=== PATIENT | female | born 1990 | race Caucasian/White ===

== ENCOUNTER → 2017-07-26 | Outpatient (CLI) | payer MEDICAID, SELFPAY | PROVIDERS: Visit Provider Psychiatry & Neurology Psychiatry | DX: F84.0 Autistic disorder (principal); R73.9 Hyperglycemia, unspecified | CPT/HCPCS: 36415; 80053; 80061; 83036; 85025 ==

== ENCOUNTER → 2018-10-22 11:33 | Outpatient (CLI) | payer MEDICAID, SELFPAY ==
[2018-10-22 13:56] LABS: Hemoglobin A1C 5.8 % (0.0-7.0)
[2018-10-22 14:09] LABS: C-Reactive Protein 1.1 mg/L (0.0-0.9); Creatine Kinase 185 U/L (26-192); Free T4 (Free Thyroxine) 1.01 ng/dl (0.76-1.46)
[2018-10-23 13:26] LABS: Vitamin B12 497 pg/mL (232-1245)
[2018-10-25 14:40] LABS: Methylmalonic Acid 166 nmol/L (0-378)
== END ==
PROVIDERS: Visit Provider Psychiatry & Neurology Neurology
DX: K59.00 Constipation, unspecified (principal); R74.8 Abnormal levels of other serum enzymes; R26.9 Unspecified abnormalities of gait and mobility
CPT/HCPCS: 36415; 82131; 82550; 82607; 83036; 84439; 84443; 86140

== ENCOUNTER → 2019-04-14 08:56 | Outpatient (CLI) | payer MEDICAID, SELFPAY ==
[2019-04-14 13:38] LABS: Basophils # 0.1 K/mm3 (0-0.2); Basophils % 0.5 % (0.1-2.0); Eosinophils # 0.2 K/mm3 (0.0-0.4); Eosinophils % 1.8 % (0.1-12.0); Hematocrit 41.7 % (37.0-47.0); Hemoglobin 13.7 g/dL (12.2-16.2); Lymphocytes # 3.3 K/mm3 (0.7-4.5); Lymphocytes % 26.8 % (10-50); Mean Corpuscular HGB Conc 32.9 g/dL (31.8-35.4); Mean Corpuscular Hemoglobin 29.9 pg (27.0-31.2); Mean Corpuscular Volume 90.8 fl (81-99); Mean Platelet Volume 7.7 fl (7.4-10.4); Monocytes # 0.6 K/mm3 (0.1-1.0); Monocytes % 5.1 % (1.7-9.3); Neutrophils % 65.8 % (37.0-80.0); Platelet Count 380 K/mm3 (142-424); Red Blood Count 4.59 M/mm3 (4.20-5.40); Red Cell Distribution Width 13.5 % (11.5-17.5); White Blood Count 12.1 K/mm3 (4.8-10.8)
[2019-04-14 14:24] LABS: Alanine Aminotransferase 26 U/L (12-78); Albumin Level 3.7 gm/dL (3.4-5.0); Albumin/Globulin Ratio 1.1 (1.1-1.8); Alkaline Phosphatase 81 U/L (46-116); Anion Gap 12.7 mEq/L (5-15); Aspartate Amino Transferase 19 U/L (15-37); Bilirubin,Total 0.3 mg/dL (0.2-1.0); Blood Urea Nitrogen 7 mg/dL (7-18); Calcium 9.2 mg/dL (8.5-10.1); Carbon Dioxide 27 mmol/L (21.0-32.0); Chloride 105 mmol/L (98-107); Chol/HDL Ratio 4.9 (1-3.5); Cholesterol 192 mg/dL (140-200); Creatinine,Serum 0.63 mg/dL (0.55-1.02); Estimated Glomerular Filt Rate 111 ml/min (>60); Free Thyroxine Index 3.3 ug/dL (5.93-13.13); GFR (African American) 134 ML/MIN (>60); Globulin 3.3 gm/dl (1.3-3.2); Glucose 93 mg/dL (74-106); HDL Cholesterol 39 mg/dL (29-89); LDL Cholesterol 129 mg/dL (0-130); Potassium 3.7 mmoL/L (3.5-5.1); Sodium 141 mmol/L (136-145); T4 (Thyroxine) 10.6 ug/dl (4.7-13.3); Thyroid Stimulating Hormone 1.71 uIU/ml (0.358-3.740); Triglycerides 122 mg/dL (30-200); Triiodothryronine (T3) Uptake 31 % (31-39); VLDL Cholesterol 24 mg/dL (0-40)
[2019-04-15 10:10] LABS: Prolactin 55.9 ng/mL (4.8-23.3)
== END ==
PROVIDERS: Visit Provider Nurse Practitioner Psychiatric/Mental Health
DX: F84.0 Autistic disorder (principal); F71 Moderate intellectual disabilities
CPT/HCPCS: 36415; 80053; 80061; 84146; 84436; 84443; 84479; 85025

== ENCOUNTER 2021-08-14 10:01 | Emergency (ER) | payer MEDICAID, SELFPAY ==
[2021-08-14 11:28] VITALS: BP 0/0; PULSE 0; RESP 0; TEMP -17.7; TEMP 0
== END 2021-08-14 11:29 | disposition left against medical advice (07) ==
LOC: UTC 10:04
PROVIDERS: Emergency Provider Nurse Practitioner Family; PCP Nurse Practitioner Family
DX: Z53.21 Procedure and treatment not carried out due to patient leaving prior to being seen by health care provider (principal)

== ENCOUNTER → 2021-11-15 12:04 | Outpatient (CLI) | payer MEDICAID, SELFPAY ==
[2021-11-15 14:47] LABS: Chloride 105 mmol/L (98-107)
[2021-11-15 14:48] LABS: Potassium 4.1 mmoL/L (3.5-5.1); Sodium 138 mmol/L (136-145)
[2021-11-15 14:50] LABS: Alanine Aminotransferase 20 U/L (12-78); Anion Gap 11.1 mEq/L (5-15); Aspartate Amino Transferase 24 U/L (14-36); Bilirubin,Unconjugated 0.3 mg/dL (0.0-1.1); Blood Urea Nitrogen 8 mg/dl (7-17); Carbon Dioxide 26 mmol/L (22.0-30.0); Estimated Glomerular Filt Rate 116 ml/min (>60); GFR (African American) 140 ML/MIN (>60)
[2021-11-15 14:51] LABS: Albumin/Globulin Ratio 1.4 (1.1-1.8); Alkaline Phosphatase 64 U/L (38-126); Bilirubin,Direct 0.1 mg/dl (0.0-0.4); Bilirubin,Indirect 0.3 mg/dL (0.0-0.9); Bilirubin,Total 0.4 mg/dl (0.2-1.3); Calcium 8.5 mg/dl (8.4-10.2); Chol/HDL Ratio 3.2 (1-3.5); Cholesterol 136 mg/dl (140-200); Globulin 2.8 g/dL (1.3-3.2); Glucose 84 mg/dl (74-100); HDL Cholesterol 42 mg/dl (40-60); Total Protein,Serum 6.8 g/dl (6.3-8.2); Triglycerides 71 mg/dl (30-150); VLDL Cholesterol 14 mg/dL (0-40)
[2021-11-15 14:58] LABS: Hemoglobin A1C 5.5 % (4.0-6.0)
[2021-11-15 15:02] LABS: Direct LDL Cholesterol 81.81 mg/dL (100-129)
[2021-11-15 15:21] LABS: Thyroid Stimulating Hormone 0.99 uIU/mL (0.465-4.68)
== END ==
PROVIDERS: Visit Provider Nurse Practitioner Psychiatric/Mental Health
DX: F84.0 Autistic disorder (principal)
CPT/HCPCS: 36415; 80053; 80061; 80076; 83036; 84146; 84443

== ENCOUNTER 2021-11-29 21:52 | Emergency (ER) | payer MEDICAID, SELFPAY ==
[2021-11-29 21:53] VITALS: BP 124/61; PULSE 80; RESP 16; TEMP 37.3; O2SAT 95; BMI 33.1
--- NOTE | 2021-11-29 22:05 | XR_ITS ---
PROCEDURE INFORMATION: Exam: XR Chest Exam date and time: 11/29/2021 10:22 PM Age: 31 years old Clinical indication: Other: Vomiting TECHNIQUE: Imaging protocol: XR of the chest. Views: 1 view. COMPARISON: No relevant prior studies available. FINDINGS: Lungs: There are strands of increased density at the left lung base suspicious for subsegmental atelectasis. No dense focal consolidation. Pleural spaces: No pleural effusion or pneumothorax. Heart/Mediastinum: The heart size is normal. Bones/joints: Unremarkable. IMPRESSION: Mild subsegmental atelectasis left lung base. No focal consolidation.
--- NOTE | 2021-11-29 22:30 | PC.NURSE ---
Mother occupied daughter to bathroom to attempt to collect urine sample, pt unable to provide sample yet.
[2021-11-29 22:52] LABS: VBG Base Excess -0.4 mmol/L (-2.4-2.3); VBG HCO3 24.9 mmol/L (23-30); VBG Oxygen Saturation 67.2 % (50-70); VBG PCO2 44.5 mmol/L (35-51); VBG PH 7.37 mmol/L (7.31-7.41); VBG PO2 33.8 mmol/L (28-40); VBG Total CO2 26.3 mmol/L (23-27)
--- NOTE | 2021-11-29 22:54 | HMH.EDGENADL ---
ED Disposition Clinical Impression: Hyponatremia, Seizure Disposition: Xfer Other Condition on Discharge: Serious Referrals: Casandra Khan [Primary Care Provider] - Time of Disposition: 05:32 - Critical Care Critical Care Time: Yes Attestation: On 11/29/21, the high probability of a clinically significant, sudden or life threatening deterioration of the following system(s) required my full and direct attention, intervention and personal management. The time I documented below is in addition to time spent performing reported procedures but includes the following listed in this critical care notation. Total Critical Care Time: 45 Vital system(s) involved:: Metabolic Failure My critical care processes included: Assessment & monitoring of V/S, Initial and Re-exams, Data Review/Interpretation, Coordinating Care, Medication Orders and management, Documentation Medical Decision Making - Medical Records Medical records reviewed: Yes: I reviewed the patient's medical records. - [place] Inquiry Pt receiving controlled substance: No Vital Signs: 11/29/21 21:53 11/29/21 23:35 11/30/21 01:02 Pulse Rate 76 115 H Pulse Rate [Left] 80 Respiratory Rate 16 26 H Blood Pressure 133/79 132/81 Blood Pressure [Right Arm] 124/61 Blood Pressure Mean Blood Pressure Mean [Right Arm] 82 02 Sat by Pulse Oximetry 95 94 L 96 Oxygen Delivery Method Room Air Room Air Oxygen Flow Rate (LPM) 11/30/21 01:30 11/30/21 02:00 11/30/21 02:30 Pulse Rate 105 H 79 75 Pulse Rate [Left] Respiratory Rate 23 29 H 21 Blood Pressure 115/94 H 124/71 114/71 Blood Pressure [Right Arm] Blood Pressure Mean Blood Pressure Mean [Right Arm] 02 Sat by Pulse Oximetry 96 96 96 Oxygen Delivery Method Nasal Cannula Nasal Cannula Oxygen Flow Rate (LPM) 2 2 11/30/21 03:00 11/30/21 03:30 11/30/21 04:05 Pulse Rate 80 73 81 Pulse Rate [Left] Respiratory Rate 24 29 H 30 H Blood Pressure 113/81 110/74 116/80 Blood Pressure [Right Arm] Blood Pressure Mean 90 84 Blood Pressure Mean [Right Arm] 02 Sat by Pulse Oximetry 96 94 L 94 L Oxygen Delivery Method Nasal Cannula Nasal Cannula Nasal Cannula Oxygen Flow Rate (LPM) 2 2 2 11/30/21 04:30 11/30/21 05:00 11/30/21 05:30 Pulse Rate 77 76 71 Pulse Rate [Left] Respiratory Rate 22 24 25 H Blood Pressure 128/80 119/76 127/71 Blood Pressure [Right Arm] Blood Pressure Mean 87 90 83 Blood Pressure Mean [Right Arm] 02 Sat by Pulse Oximetry 95 96 97 Oxygen Delivery Method Nasal Cannula Nasal Cannula Nasal Cannula Oxygen Flow Rate (LPM) 2 2 2 - Lab Data Lab Results 11/29/21 22:05: VBG pH 7.37, VBG pCO2 44.5, VBG pO2 33.8, VBG HCO3 24.9, VBG Total CO2 26.3, VBG O2 Saturation 67.2, VBG Base Excess -0.4 11/29/21 22:40: WBC 18.0 H, RBC 4.53, Hgb 13.9, Hct 40.1, MCV 88.5, MCH 30.7, MCHC 34.7, RDW 13.3, Plt Count 287, MPV 8.3, Neut % (Auto) 80.4 H, Lymph % (Auto) 14.4, [place] % (Auto) 4.4, Eos % (Auto) 0.2, Baso % (Auto) 0.6, Neut # (Auto) 14.5 H, Lymph # (Auto) 2.6, [place] # (Auto) 0.8, Eos # (Auto) 0.0, Baso # (Auto) 0.1, Total Counted 100, Neutrophils % (Manual) 84 H, Lymphocytes % (Manual) 11, Monocytes % (Manual) 5, Platelet Estimate Normal, Hypochromasia 1+ 11/29/21 22:40: Sodium 121 L, Potassium 3.8, Chloride 86 L, Carbon Dioxide 26, Anion Gap 12.8, BUN 6 L, Creatinine 0.50 L, Estimated Creat Clear 216, Estimated GFR 143, Est GFR ( Amer) 173, Glucose 125 H, Calcium 8.5, Total Bilirubin 1.0, AST 40 H, ALT 24, Alkaline Phosphatase 68, Total Protein 6.8, Albumin 4.1, Globulin 2.7, Albumin/Globulin Ratio 1.5, Lipase 115 11/29/21 22:40: Lactate 2.7 H 11/29/21 22:40: Serum HCG, Qual Negative 11/29/21 22:40: TSH 0.50 11/29/21 23:09: SARS-CoV-2 (PCR) Not detected, Influenza A Untype (PCR) Not detected, Influenza Type B (PCR) Not detected 11/30/21 02:05: Urine Color Yellow, Urine Appearance Clear, Urine pH 6.0, Ur Specific [place] 1.020, Urine Protein Negative, Urine Glucose (UA) N
[2021-11-29 22:59] LABS: Basophils # 0.1 K/mm3 (0-0.2); Basophils % 0.6 % (0.1-2.0); Eosinophils % 0.2 % (0.1-12.0); Hematocrit 40.1 % (37.0-47.0); Hemoglobin 13.9 g/dL (12.2-16.2); Lymphocytes # 2.6 K/mm3 (0.7-4.5); Lymphocytes % 14.4 % (10-50); Mean Corpuscular HGB Conc 34.7 g/dL (31.8-35.4); Mean Corpuscular Hemoglobin 30.7 pg (27.0-31.2); Mean Corpuscular Volume 88.5 fl (81-99); Mean Platelet Volume 8.3 fl (7.4-10.4); Monocytes # 0.8 K/mm3 (0.1-1.0); Monocytes % 4.4 % (1.7-9.3); Neutrophils # 14.5 K/mm3 (1.8-7.8); Neutrophils % 80.4 % (37.0-80.0); Platelet Count 287 K/mm3 (142-424); Red Blood Count 4.53 M/mm3 (4.20-5.40); Red Cell Distribution Width 13.3 % (11.5-17.5)
[2021-11-29 23:00] LABS: Chloride 86 mmol/L (98-107); Sodium 121 mmol/L (136-145)
[2021-11-29 23:03] LABS: Alanine Aminotransferase 24 U/L (12-78); Albumin Level 4.1 g/dl (3.5-5.0); Albumin/Globulin Ratio 1.5 (1.1-1.8); Alkaline Phosphatase 68 U/L (38-126); Anion Gap 12.8 mEq/L (5-15); Aspartate Amino Transferase 40 U/L (14-36); Blood Urea Nitrogen 6 mg/dl (7-17); Calcium 8.5 mg/dl (8.4-10.2); Carbon Dioxide 26 mmol/L (22.0-30.0); Creatinine Clearance Estimated 216 mL/min (50-200); Estimated Glomerular Filt Rate 143 ml/min (>60); GFR (African American) 173 ML/MIN (>60); Globulin 2.7 g/dL (1.3-3.2); Glucose 125 mg/dl (74-100); Lipase 115 U/L (23-300); Potassium 3.8 mmoL/L (3.5-5.1); Total Protein,Serum 6.8 g/dl (6.3-8.2)
[2021-11-29 23:08] LABS: Lactic Acid 2.7 mmol/L (0.7-2.1); MANUAL DIFFERENTIAL MANUAL DIFFERENTIAL (MANUAL DIFF)
[2021-11-29 23:16] LABS: Coronavirus 19, PCR Not Detected (NotDetected); Influenza A, PCR Not Detected (NotDetected); Influenza B, PCR Not Detected (NotDetected)
[2021-11-29 23:35] VITALS: BP 133/79; PULSE 76; O2SAT 94
[2021-11-29 23:51] LABS: Hypochromasia 1+; Lymphocytes % 11 % (10-50); Monocytes % 5 % (2-9); Neutrophils % 84 % (42-76); Platelet Estimate Normal; Total Cells Counted 100
[2021-11-30] VITALS (24 sets, daily range): BP systolic 109–147; BP diastolic 68–107; PULSE 71–115; RESP 17–32; TEMP 37–38.3; O2SAT 91–98
--- NOTE | 2021-11-30 | CT_ITS ---
PROCEDURE INFORMATION: Exam: CT Head Without Contrast Exam date and time: 11/30/2021 12:33 AM Age: 31 years old Clinical indication: Other: Vomiting; Patient HX: Patient started seizing after scan completed. No HX of seizures TECHNIQUE: Imaging protocol: Computed tomography of the head without contrast. Radiation optimization: All CT scans at this facility use at least one of these dose optimization techniques: automated exposure control; mA and/or kV adjustment per patient size (includes targeted exams where dose is matched to clinical indication); or iterative reconstruction. Other technique: STROKE PROTOCOL was implemented. COMPARISON: No relevant prior studies available. FINDINGS: Brain: There is no evidence of intracranial mass or hemorrhage. Mackey-white matter differentiation is maintained with diffuse sulcal effacement. Suprasellar cistern appears partially effaced without herniation. No abnormal intra or extra-axial fluid collection. Cerebral ventricles: No ventriculomegaly. Paranasal sinuses: Visualized sinuses are unremarkable. No fluid levels. Mastoid air cells: Visualized mastoid air cells are well aerated. Bones/joints: Unremarkable. No acute fracture. Soft tissues: Unremarkable. IMPRESSION: Findings suspicious for early diffuse cerebral edema. No evidence of mass or intracranial hemorrhage. ASSESSMENT: ASPECTS ([place] Stroke Program Early CT Score) is 10.
[2021-11-30 00:07] LABS: HCG Qualitative, Serum Negative (Negative)
--- NOTE | 2021-11-30 01:17 | PC.NURSE ---
Dr. Srinivasan s/w [facility]
[2021-11-30 02:08] LABS: Microscopic, Urine URINE MICROSCOPIC (MICROSCOPIC)
[2021-11-30 02:09] LABS: Appearance,Urine CLEAR (Clear); Bilirubin,Urine Negative (Negative); Blood, Urine 1+ (Negative); Color,Urine YELLOW (Yellow); Glucose,Urine (UA) Negative (Negative); Ketones,Urine 1+ (Negative); Leukocyte Esterase,Urine Negative (Negative); Nitrate,Urine Negative (Negative); Protein,Urine Negative (Negative); Urobilinogen,Urine 0.2 EU/dl (0.2)
[2021-11-30 02:10] LABS: Urine Pregnancy, HCG Qual. Negative (Negative)
[2021-11-30 02:21] LABS: Barbiturates Screen,Urine Negative ng/ml (<200)
[2021-11-30 02:22] LABS: Benzodiazepines Screen,Urine Negative ng/ml (<200)
[2021-11-30 02:23] LABS: Amphetamine/Metha Screen,Urine Negative ng/ml (<1000); Methadone Screen,Urine Negative ng/ml (<300)
[2021-11-30 02:24] LABS: Cannabinoid Screen,Urine Negative ng/ml (<50); Cocaine Screen,Urine Negative ng/ml (<300)
--- NOTE | 2021-11-30 02:24 | PC.NURSE ---
spoke with [facility] about transfer, they currently have no beds.
[2021-11-30 02:25] LABS: Opiate Screen,Urine Negative ng/ml (<300)
[2021-11-30 02:26] LABS: Phencyclidine Screen,Urine Negative ng/ml (<25)
[2021-11-30 02:28] LABS: Bacteria,Urine 1+ /lpf; WBC,Urine Occasional #/hpf (0-3)
--- NOTE | 2021-11-30 02:31 | PC.NURSE ---
CLARE STANLEY speaking to Dr. Howard House at [facility]
[2021-11-30 02:45] LABS: Reflex Lactic Add Lactic Reflex
--- NOTE | 2021-11-30 03:15 | PC.NURSE ---
s/w Nancie at [facility], gave updated VS. Still no beds, anticipate after shift.
[2021-11-30 03:34] LABS: Lactic Acid Follow Up (RFLX 1) 3.1 mmol/L (0.7-2.1)
--- NOTE | 2021-11-30 03:35 | CT_ITS ---
PROCEDURE INFORMATION: Exam: CT Abdomen And Pelvis With Contrast Exam date and time: 11/30/2021 3:53 AM Age: 31 years old Clinical indication: Vomiting TECHNIQUE: Imaging protocol: Computed tomography of the abdomen and pelvis with contrast. Radiation optimization: All CT scans at this facility use at least one of these dose optimization techniques: automated exposure control; mA and/or kV adjustment per patient size (includes targeted exams where dose is matched to clinical indication); or iterative reconstruction. Contrast material: ISOVUE; Contrast volume: 75 ml; Contrast route: IV; COMPARISON: CR PELAP PELVIS AP ONLY 04/24/2016 11:43 AM FINDINGS: Lungs: There is a 2 cm subpleural density of the left lower lobe with adjacent stranding suspicious for rounded atelectasis. A small infiltrate cannot be excluded. Pleural spaces: No pleural effusion or pneumothorax. Heart: The heart size is normal. No pericardial effusion. Liver: Unremarkable. No mass. Gallbladder and bile ducts: Status post cholecystectomy. Common duct is mildly ectatic measuring 9 mm. Pancreas: Unremarkable. Spleen: Unremarkable. Adrenal glands: Unremarkable. Kidneys and ureters: There is a 1.5 cm simple cyst of the right kidney. There are punctate calcifications of the kidneys bilaterally consistent with nonobstructing stones. Stomach and bowel: Small and large bowel caliber is normal. No evidence of obstruction. Minimal colonic diverticulosis. Appendix: No evidence of appendicitis. Intraperitoneal space: No free air. No significant fluid collection. Retroperitoneal space: No bulky lymphadenopathy. Vasculature: Unremarkable. No abdominal aortic aneurysm. Lymph nodes: Unremarkable. No enlarged lymph nodes. Urinary bladder: The urinary bladder is mildly distended and unremarkable. Reproductive: Unremarkable as visualized. Small amount of free pelvic fluid likely physiologic. Bones/joints: No osseous abnormality. Soft tissues: There is a small umbilical hernia containing fat only. IMPRESSION: 1. Subpleural opacification left lung base suspicious for rounded atelectasis. Inflammation is possible. 2. Punctate nonobstructing renal stones bilaterally. 3. Right renal cyst. 4. Status post cholecystectomy with mild ectasia of the common duct. 5. Otherwise, no acute findings. COMMENTS: Consistent with the [employer]'s Incidental Findings Committee white paper (J Am [place] [employer]iol 2018): Any incidental renal lesion less than 1 cm or classified as too small to characterize, or any incidental cystic renal lesion characterized as simple-appearing, is likely benign. No follow-up imaging is recommended for these lesions per consensus recommendations based on imaging criteria.
[2021-11-30 03:42] LABS: Chloride 88 mmol/L (98-107); Potassium 3.2 mmoL/L (3.5-5.1); Sodium 119 mmol/L (136-145)
[2021-11-30 03:45] LABS: Anion Gap 11.2 mEq/L (5-15); Blood Urea Nitrogen 7 mg/dl (7-17); Carbon Dioxide 23 mmol/L (22.0-30.0); Creatinine Clearance Estimated 216 mL/min (50-200); Estimated Glomerular Filt Rate 143 ml/min (>60); GFR (African American) 173 ML/MIN (>60)
[2021-11-30 03:46] LABS: Calcium 7.8 mg/dl (8.4-10.2); Glucose 162 mg/dl (74-100)
--- NOTE | 2021-11-30 04:36 | PC.NURSE ---
Duenas placed, pt tolerated very well. Cath urine already collected.
--- NOTE | 2021-11-30 04:51 | PC.NURSE ---
Late Entry: At 0045 maintenance technician called ER desk for help, this RN and H Krystian went to ct scan room and pt lips were purple, she was shaking, drooling, and throwing her head back. Pt was placed on 2 LPM NC, turned on her side and attempting to apply suction. MD Srinivasan notified and she presented to CT room, verbal order for Ativan 1 mg IVP 1x. 0049 Ativan given 0051 Pt began to settle down, less shaking and no longer drooling or throwing head back. MD report she is lip shaking and deviated. maintenance technician states Head CT was obtained but not ABD/Pelv. negated scan for now and pt transitioned to stretcher and taken to trauma rm 1 for suction and VS monitoring. Pt's mother present during this episode. 0115 Pt resting quietly no lips smacking or deviation noted at this time. Pt transferred back to rm 4 were her belongings. Mother at bedside.
[2021-11-30 04:55] LABS: Reflex Lactic (2 hrs) Add Lactic Reflex
[2021-11-30 05:09] LABS: Lactic Acid Follow up (RFLX 2) 1.5 mmol/L (0.7-2.1)
--- NOTE | 2021-11-30 05:09 | PC.NURSE ---
Late Entry: would like to give Hypertonic Saline (3%), 100ml over 10min. Med not available in any [facility], would like pharmacy to be called to arrange for it given to pt. 0129- paged Jesse Mac, he states House should have access. Gabe was beside this RN during the call and she denied knowledge on how to access this fluid from the fluid room . Gbae attempted to access with master brock, she was unable. Then called maintenance and [facility], they both are unable to access. 0142- paged Jesse Mac back, let him know this information. He stated Marcelino or Racheal will come to unlock fluid room to access. 0156 Called [facility] and s/w Eron to confirm 3% saline order. Ok to run.
[2021-11-30 05:26] LABS: Sodium 119 mmol/L (136-145)
[2021-11-30 07:18] LABS: Sodium 120 mmol/L (136-145)
--- NOTE | 2021-11-30 07:54 | PC.NURSE ---
pt is self harming. dr henao made aware. no orders given at this time
--- NOTE | 2021-11-30 08:45 | PC.NURSE ---
1200mL output emptied from moncada catheter
--- NOTE | 2021-11-30 08:57 | PC.NURSE ---
Pt resting comfortably at this time. Family at bs
--- NOTE | 2021-11-30 09:21 | PC.NURSE ---
Spoke with [facility] and gave update on pt condition. Advised they're working on a bed assignment at this time.
--- NOTE | 2021-11-30 12:23 | PC.NURSE ---
Lab is going to come draw another sodium level.
[2021-11-30 13:03] LABS: Sodium 131 mmol/L (136-145)
--- NOTE | 2021-11-30 13:15 | PC.NURSE ---
2200mL urine emptied from moncada at this time.
--- NOTE | 2021-11-30 14:41 | PC.NURSE ---
Pt sleeping in bed at this time. Family is at bs.
--- NOTE | 2021-11-30 14:53 | PC.NURSE ---
spoke with access center at [facility], gave pt updated VS. States they do not have any beds available r/t staffing issues. States they are hoping for tonight staff will be better. States they will call back around 9pm for another update. Notified ER
--- NOTE | 2021-11-30 14:59 | PC.NURSE ---
Called [facility] to check on bed status. They asked for an update on pt condition and advised that it will probably be tonight before a bed is available. We are to wait for a return call.
--- NOTE | 2021-11-30 15:22 | PC.NURSE ---
Called Transfer Center for [facility], they are also going to check in availability at [facility].
--- NOTE | 2021-11-30 16:38 | PC.NURSE ---
Mom gave home meds at this time... Citalopram, Risperdone, 325mg Tylenol
--- NOTE | 2021-11-30 17:09 | PC.NURSE ---
checked on pt at this time, mother states no needs at this time
--- NOTE | 2021-11-30 17:27 | PC.NURSE ---
[facility] refused Pt.
--- NOTE | 2021-11-30 20:37 | CT_ITS ---
PROCEDURE INFORMATION: Exam: CT Head Without Contrast Exam date and time: 11/30/2021 9:21 PM Age: 31 years old Clinical indication: Screening exam; Additional info: Re-evaluation TECHNIQUE: Imaging protocol: Computed tomography of the head without contrast. Radiation optimization: All CT scans at this facility use at least one of these dose optimization techniques: automated exposure control; mA and/or kV adjustment per patient size (includes targeted exams where dose is matched to clinical indication); or iterative reconstruction. Other technique: STROKE PROTOCOL was implemented. COMPARISON: CT HEAD/BRAIN WO CON 11/30/2021 12:33 AM FINDINGS: Brain: No acute intracranial bleed. Mackey-white differentiation is felt to be within normal limits. Sulcal markings over the cerebral hemispheres appear more conspicuous when compared with prior examination. The suprasellar cistern is currently unremarkable. Cisterna magna, severe ear cerebellar cistern, and sylvian fissures are patent. Cerebral ventricles: No ventriculomegaly. Paranasal sinuses: Visualized sinuses are unremarkable. No fluid levels. Mastoid air cells: Visualized mastoid air cells are well aerated. Vasculature: Intracranial artery density is normal. Bones/joints: Unremarkable. No acute fracture. Soft tissues: Unremarkable. IMPRESSION: No acute intracranial bleed or focal cerebral edema at this time. The basal cisterns are patent. ASSESSMENT: ASPECTS ([place] Stroke Program Early CT Score) is 10.
--- NOTE | 2021-11-30 20:51 | PC.NURSE ---
ordered repeat head CT. [facility] called for update, updated them on pt condition, transfer center advised that they would not have a bed tonight and would call back around 3am
--- NOTE | 2021-11-30 21:07 | PC.NURSE ---
pt resting well at this time. Pts mother is at bedside.
--- NOTE | 2021-11-30 21:20 | PC.NURSE ---
Went in and assessed pt. No new needs at this time per mother. Advised her MD ordered repeat head CT, pt going over at this itme. Also updated her on plan with [facility] and that they had called requesting update and that they advised they would not have a bed tonight. Mother understanding and agreeable with POC at this time.
--- NOTE | 2021-11-30 21:50 | PC.NURSE ---
PT returned from CT. Mother requesting for pt to rest in bed and not be bothered at this time
--- NOTE | 2021-11-30 21:59 | PC.NURSE ---
pulled moncada out balloon intact
--- NOTE | 2021-11-30 22:25 | PC.NURSE ---
pt laying in bed. Pt cleaned up and repositioned in bed. Brief put on pt at this time
--- NOTE | 2021-11-30 22:37 | PC.NURSE ---
speaking with SAMINA. Head CT normal
--- NOTE | 2021-11-30 23:25 | PC.NURSE ---
MD and myself went in and spoke with mother regarding pt condition and head CT results. Mother agreed to let us take a rectal temp at this time. MD gave VO for CBC and BMP. Pt agreeable with POC at this time
[2021-11-30 23:57] LABS: Basophils # 0.2 K/mm3 (0-0.2); Basophils % 1.3 % (0.1-2.0); Eosinophils % 0.1 % (0.1-12.0); Hematocrit 40.1 % (37.0-47.0); Hemoglobin 13.6 g/dL (12.2-16.2); Lymphocytes # 2.9 K/mm3 (0.7-4.5); Lymphocytes % 19.6 % (10-50); Mean Corpuscular Hemoglobin 30.4 pg (27.0-31.2); Mean Corpuscular Volume 89.3 fl (81-99); Mean Platelet Volume 8.4 fl (7.4-10.4); Monocytes # 1.1 K/mm3 (0.1-1.0); Monocytes % 7.4 % (1.7-9.3); Neutrophils # 10.4 K/mm3 (1.8-7.8); Neutrophils % 71.5 % (37.0-80.0); Platelet Count 301 K/mm3 (142-424); Red Blood Count 4.49 M/mm3 (4.20-5.40); Red Cell Distribution Width 13.6 % (11.5-17.5); White Blood Count 14.6 K/mm3 (4.8-10.8)
[2021-11-30 23:59] LABS: Anion Gap 11.2 mEq/L (5-15); Blood Urea Nitrogen 7 mg/dl (7-17); Calcium 8.7 mg/dl (8.4-10.2); Carbon Dioxide 28 mmol/L (22.0-30.0); Chloride 101 mmol/L (98-107); Creatinine Clearance Estimated 216 mL/min (50-200); Estimated Glomerular Filt Rate 143 ml/min (>60); GFR (African American) 173 ML/MIN (>60); Glucose 107 mg/dl (74-100); Potassium 3.2 mmoL/L (3.5-5.1); Sodium 137 mmol/L (136-145)
--- NOTE | 2021-12-01 00:10 | PC.NURSE ---
Notified that labs were back.
--- NOTE | 2021-12-01 00:34 | PC.NURSE ---
MD spoke at length with mother about pt's lab results, head CT results and POC. MD advised mother that due to improvements he feels at this time pt is stable to be d/c'ed home. Mother agreeable with POC and advised she would call her sister to come and get them.
[2021-12-01 00:50] VITALS: BP 106/72; PULSE 88; RESP 16; TEMP 37; O2SAT 98
[2021-12-01 09:18] LABS: Sodium, Urine 109 mmol/L (Not Estab.)
[2021-12-02 06:22] LABS: Osmolality, Urine 416 mOsmol/kg (.)
== END 2021-12-01 01:14 | disposition home or self-care (01) ==
PROVIDERS: Emergency Medicine; Emergency Provider Emergency Medicine; PCP Nurse Practitioner Family
DX: E87.1 Hypo-osmolality and hyponatremia (principal); G40.909 Epilepsy, unspecified, not intractable, without status epilepticus; R11.2 Nausea with vomiting, unspecified; R19.7 Diarrhea, unspecified; Z20.822 Contact with and (suspected) exposure to COVID-19
CPT/HCPCS: 36415; 51702; 70450; 71045; 74177; 80048; 80053; 80305; 81001; 81025; 82533; 82803; 83605; 83690; 83930; 83935; 84295; 84300; 84443; 84703; 85007; 85025; 96374; 96375; 99285; C9803; J1953; J2405; Q9967; U0003; U0005

== ENCOUNTER → 2022-04-06 11:48 | Outpatient (CLI) | payer MEDICAID, SELFPAY ==
[2022-04-06 14:14] LABS: Basophils # 0.1 K/mm3 (0-0.2); Basophils % 0.8 % (0.1-2.0); Eosinophils # 0.1 K/mm3 (0.0-0.4); Eosinophils % 0.9 % (0.1-12.0); Hematocrit 40.7 % (37.0-47.0); Hemoglobin 13.3 g/dL (12.2-16.2); Lymphocytes # 2.8 K/mm3 (0.7-4.5); Lymphocytes % 29.5 % (10-50); Mean Corpuscular HGB Conc 32.8 g/dL (31.8-35.4); Mean Corpuscular Hemoglobin 29.9 pg (27.0-31.2); Mean Corpuscular Volume 91.1 fl (81-99); Mean Platelet Volume 9.2 fl (7.4-10.4); Monocytes # 0.6 K/mm3 (0.1-1.0); Neutrophils # 5.9 K/mm3 (1.8-7.8); Neutrophils % 62.8 % (37.0-80.0); Platelet Count 290 K/mm3 (142-424); Red Blood Count 4.47 M/mm3 (4.20-5.40); Red Cell Distribution Width 13.6 % (11.5-17.5); White Blood Count 9.3 K/mm3 (4.8-10.8)
[2022-04-06 14:18] LABS: Alanine Aminotransferase 18 U/L (12-78); Albumin Level 3.7 g/dl (3.5-5.0); Albumin/Globulin Ratio 1.3 (1.1-1.8); Alkaline Phosphatase 64 U/L (38-126); Anion Gap 12.8 mEq/L (5-15); Aspartate Amino Transferase 24 U/L (14-36); Blood Urea Nitrogen 9 mg/dl (7-17); Calcium 8.6 mg/dl (8.4-10.2); Carbon Dioxide 24 mmol/L (22.0-30.0); Chloride 108 mmol/L (98-107); Estimated Glomerular Filt Rate 115 ml/min (>60); GFR (African American) 139 ML/MIN (>60); Globulin 2.9 g/dL (1.3-3.2); Glucose 65 mg/dl (74-100); Potassium 3.8 mmoL/L (3.5-5.1); Sodium 141 mmol/L (136-145); Total Protein,Serum 6.6 g/dl (6.3-8.2); Uric Acid 5.7 mg/dl (2.5-6.2)
[2022-04-06 14:19] LABS: Bilirubin,Total < 0.1 mg/dl (0.2-1.3)
[2022-04-06 14:23] LABS: C-Reactive Protein 2.3 mg/L (0-4)
[2022-04-06 14:38] LABS: Free T4 (Free Thyroxine) 1.34 ng/dl (0.78-2.19)
[2022-04-06 14:49] LABS: Thyroid Stimulating Hormone 1.02 uIU/mL (0.465-4.68)
[2022-04-07 12:11] LABS: RA Latex Turbid. <10.0 IU/mL (<14.0)
[2022-04-10 14:12] LABS: Antinuclear Antibodies, IFA Negative (.)
== END ==
PROVIDERS: PCP Nurse Practitioner Family; Visit Provider Nurse Practitioner Family
DX: R53.83 Other fatigue (principal); M13.0 Polyarthritis, unspecified
CPT/HCPCS: 36415; 80053; 84439; 84443; 84550; 85025; 86038; 86140; 86431

== ENCOUNTER 2024-05-05 15:26 | Outpatient (CLI) | payer MEDICARE, MEDICAID, SELFPAY ==
[2024-05-05 15:51] LABS: Basophils # 0.2 K/mm3 (0-0.2); Eosinophils # 0.1 K/mm3 (0.0-0.4); Eosinophils % 1.2 % (0.1-12.0); Hematocrit 42.3 % (37.0-47.0); Lymphocytes # 2.7 K/mm3 (0.7-4.5); Lymphocytes % 29.3 % (10-50); Mean Corpuscular HGB Conc 33.1 g/dL (31.8-35.4); Mean Corpuscular Hemoglobin 29.7 pg (27.0-31.2); Mean Corpuscular Volume 89.7 fl (81-99); Mean Platelet Volume 7.9 fl (7.4-10.4); Monocytes # 0.5 K/mm3 (0.1-1.0); Monocytes % 5.4 % (1.7-9.3); Neutrophils # 5.8 K/mm3 (1.8-7.8); Neutrophils % 62.2 % (37.0-80.0); Platelet Count 280 K/mm3 (142-424); Red Blood Count 4.72 M/mm3 (4.20-5.40); Red Cell Distribution Width 13.3 % (11.5-17.5); White Blood Count 9.3 K/mm3 (4.8-10.8)
[2024-05-05 16:18] LABS: Albumin Level 4.5 g/dl (3.5-5.0); Chloride 102 mmol/L (98-107); Potassium 3.6 mmoL/L (3.5-5.1); Sodium 138 mmol/L (136-145)
[2024-05-05 16:21] LABS: Alanine Aminotransferase 33 U/L (12-78); Albumin/Globulin Ratio 1.7 (1.1-1.8); Alkaline Phosphatase 49 U/L (38-126); Anion Gap 10.6 mEq/L (5-15); Aspartate Amino Transferase 26 U/L (14-36); Bilirubin,Total 0.5 mg/dl (0.2-1.3); Blood Urea Nitrogen 5 mg/dl (7-17); Calcium 9.6 mg/dl (8.4-10.2); Carbon Dioxide 29 mmol/L (22.0-30.0); Estimated Glomerular Filt Rate 114 ml/min (>60); GFR (African American) 138 ML/MIN (>60); Globulin 2.6 g/dL (1.3-3.2); Glucose 120 mg/dl (74-100); Total Protein,Serum 7.1 g/dl (6.3-8.2)
== END 2024-05-05 23:59 | disposition home or self-care (01) ==
LOC: LAB 15:28
PROVIDERS: PCP Nurse Practitioner Family; Visit Provider Podiatrist
DX: B35.1 Tinea unguium (principal); L60.2 Onychogryphosis; F84.0 Autistic disorder
CPT/HCPCS: 36415; 80053; 85025